=== PATIENT | male | born 1960 | race Caucasian/White ===

== ENCOUNTER 2016-11-17 02:16 | Inpatient (IN) | payer OTHER ==
[2016-11-17] VITALS (7 sets, daily range): BP systolic 122–157; BP diastolic 57–99
[~2016-11-17] VITALS: Ht 177.8 cm; Wt 114.7 kg
--- NOTE | ~2016-11-17 | ST ---
[place], [place] EXERCISE STRESS TEST REPORT NAME: BAYRON ROCK UNIT #: [id number] ROOM: 507 DOCTOR: TASH HOFFMANN MD BIRTHDATE: [birth year] DOS: 11/17/2016 LEXISCAN STRESS EKG REFERRING PHYSICIAN: Dr. De Leon. INDICATION: Chest pain The patient underwent standard protocol Lexiscan stress. The patient's baseline EKG showed normal sinus rhythm and nonspecific ST-T wave changes with intraventricular conduction delay. The patient's baseline heart rate 63 beats per minute with a blood pressure of 112/80. The patient's peak blood pressure or heart rate was 82 with a blood pressure of 118/72, patient denied any chest pain during the exam, the patient had no ST changes. The patient had occasional PVCs, mostly arrhythmias. SUMMARY OF FINDINGS: Unremarkable Lexiscan stress. Please refer to separate report for perfusion scan results. TASH HOFFMANN MD CM:STRESS:EXERCISE STRESS TEST REPORT [id number] TASH HOFFMANN MD
[2016-11-17] MEDS ORDERED: ASPIRIN CHILDRE81 MG PO (02:20)
[2016-11-17] MEDS ORDERED: AMIODARONE HCL400 MG PO (02:20)
[2016-11-17] MEDS ORDERED: AMLODIPINE BESYL5 MG PO (02:21)
[2016-11-17] MEDS ORDERED: LIPITOR10 MG PO (02:22)
[2016-11-17] MEDS ORDERED: PLAVIX75 M1 PO ×2 (02:22→09:37)
[2016-11-17] MEDS ORDERED: ALLOPURINOL100 MG PO (02:23)
[2016-11-17 02:36] LABS: BASO % 0.4 % (0.0-1.0); EOS # 0.2 10*3/uL (0.0-0.4); EOS % 1.7 % (1.0-4.0); HEMATOCRIT 41.7 % (42.0-52.0); HEMOGLOBIN 14.6 g/dl (14.0-18.0); IG # 0.1 10*3/uL (0.0-0.1); LYMPH # 3.3 10*3/uL (1.3-4.4); LYMPH % 33.5 % (27.0-41.0); MEAN CELL VOLUME 93.7 fl (80.0-94.0); MEAN CORPUSCULAR HGB 32.8 pg (27.0-31.0); MEAN PLATELET VOLUME 10.2 fl (9.6-12.3); MONO # 0.8 10*3/uL (0.1-1.0); MONO % 7.7 % (3.0-9.0); NEUT # 5.5 10*3/uL (2.3-7.9); NEUT % 56.2 % (47.0-73.0); PLATELET COUNT AUTOMATED 237 10*3/uL (130-400); RED BLOOD COUNT 4.45 10*6/uL (4.50-5.90); RED CELL DISTRI WIDTH 13.2 % (0-14.5); WHITE BLOOD COUNT 9.9 10*3/uL (4.8-10.8)
[2016-11-17 02:46] LABS: PROTHROMBIN TIME 10.2 SECONDS (9.0-12.4)
[2016-11-17 02:54] LABS: ALBUMIN 4.1 gm/dl (3.1-4.5); ALKALINE PHOSPHATASE 85 U/L (45-117); BILIRUBIN, TOTAL 0.4 mg/dl (0.2-1.0); BUN 17 mg/dl (7-24); CARBON DIOXIDE 26 mmol/L (21-32); CHLORIDE 100 mmol/L (98-107); EST GLOM FILT AFRICAN AMERICAN > 60 ml/min; GLUCOSE 138 mg/dL (65-99); MAGNESIUM 2.1 mg/dL (1.5-2.1); POTASSIUM 3.6 mmol/L (3.5-5.1); SGOT/AST 40 IU/L (3-35); SGPT/ALT 83 U/L (12-78); SODIUM 138 mmol/L (136-145); TOTAL PROTEIN 7.8 gm/dL (6.4-8.2)
[2016-11-17 02:55] LABS: TROPONIN I < 0.015 ng/ml (<0.045)
[2016-11-17 07:16] LABS: FREE T4 1.13 ng/dl (0.76-1.46)
[2016-11-17 07:22] LABS: THYROID STIM HORMONE (HS) 2.74 uIU/ml (0.358-4.75)
[2016-11-17 08:50] LABS: CKMB 1.6 ng/ml (0.5-3.6); CPK 80 U/L (39-308)
[2016-11-17 08:59] LABS: TROPONIN I < 0.015 ng/ml (<0.045)
[2016-11-17] MEDS ORDERED: AMIODARONE HYD200 MG PO (09:35)
[2016-11-17] MEDS ORDERED: LIPITOR20 MG PO (09:36)
[2016-11-17] MEDS ORDERED: NORVASC10 MG PO (09:36)
[2016-11-17 14:03] LABS: CKMB 1.2 ng/ml (0.5-3.6); CPK 82 U/L (39-308)
[2016-11-17 14:09] LABS: TROPONIN I < 0.015 ng/ml (<0.045)
[2016-11-17] MEDS ORDERED: IBU800 MG PO (17:57)
[2016-11-17 18:24] LABS: CKMB 1.3 ng/ml (0.5-3.6); CPK 81 U/L (39-308)
[2016-11-17 18:29] LABS: TROPONIN I < 0.015 ng/ml (<0.045)
== END 2016-11-17 18:38 | disposition home or self-care (01) | DRG 313 ==
LOC: ED 02:16 → EDHOLD 03:55 → 5E 03:59
PROVIDERS: Emergency Medicine Emergency Medical Services; Internal Medicine
PROC: 4A02XM4 Measurement of Cardiac Total Activity, External Approach (ICD-10-PCS; principal; 2016-11-17)
PROC: 3E073KZ Introduction of Other Diagnostic Substance into Coronary Artery, Percutaneous Approach (ICD-10-PCS; principal; 2016-11-17)
DX: R07.9 Chest pain, unspecified (principal); I25.2 Old myocardial infarction; I10 Essential (primary) hypertension; I48.0 Paroxysmal atrial fibrillation; R00.0 Tachycardia, unspecified; R73.9 Hyperglycemia, unspecified; R74.0 Nonspecific elevation of levels of transaminase and lactic acid dehydrogenase [LDH]; E78.5 Hyperlipidemia, unspecified; M10.9 Gout, unspecified; Z95.5 Presence of coronary angioplasty implant and graft; Z95.810 Presence of automatic (implantable) cardiac defibrillator; Z86.73 Personal history of transient ischemic attack (TIA), and cerebral infarction without residual deficits; Z82.49 Family history of ischemic heart disease and other diseases of the circulatory system; Z84.89 Family history of other specified conditions; Z79.82 Long term (current) use of aspirin; Z79.1 Long term (current) use of non-steroidal anti-inflammatories (NSAID); Z79.899 Other long term (current) drug therapy; Z88.8 Allergy status to other drugs, medicaments and biological substances; Z88.7 Allergy status to serum and vaccine

== ENCOUNTER 2016-12-20 14:58 | Inpatient (IN) | payer OTHER ==
[2016-12-19 20:40] VITALS: BP 160/89
[~2016-12-20] VITALS: Ht 177.8 cm; Wt 105.9 kg
--- NOTE | ~2016-12-20 | CON ---
[place], [place] REPORT OF CONSULTATION NAME: BAYRON ROCK UNIT #: [id number] ROOM: [facility] DOCTOR: FRANCISCO MCCRAY MD BIRTHDATE: [birth year] DOS: 12/21/2016 CHIEF COMPLAINT: Chest pain. HISTORY OF PRESENT ILLNESS: The patient is a 56-year-old man who is mostly followed for his cardiac issues in [place], [place]. The patient claims that he has had 3 previous myocardial infarctions, 1 of which was complicated by ventricular fibrillation, requiring defibrillation approximately 2 years ago. A single lead VVI defibrillator was inserted. To the patient's knowledge, the device has never fired. The patient states that for the last 3 months. He has had pain in his left anterior chest radiating into his left axilla. He relates it to the location of his ICD generator. He states that the pain can be intense and has required several hospital evaluations. He was most recently hospitalized at [facility] on 11/17/2016 at which time he ruled out for an acute myocardial infarction. A pharmacologic stress test done at that time showed a large fixed defect involving the inferolateral wall with minimal josias-infarction reversibility. Ejection fraction was preserved at 57%. It was felt that the patient should be treated medically. Since then, he has continued to have episodic chest pain. He presented to the Emergency Room at [facility] last evening because of worsening pain that persisted and did radiate into his shoulder and arm associated with diaphoresis, shortness of breath and some pleuritic pain. Chest x-ray was normal aside from the presence of his ICD. Multiple troponin levels were normal. The patient's ICD was interrogated by the [employer] dairy supplies sales representative. The device is an Inogen ICD model D140/536620. Pacing lead impedance was 548 ohms. The interrogation showed no events to display. Despite this, his monitor shows multiple apparent pacer spikes. It appeared as though the device was trying to pace terminate arrhythmias that were not apparent on the monitor strip. I could not tell from the strips available to me whether the displayed pacer spikes were artifactual or not. Today, unfortunately, he continues to have episodes of severe pain and was noted by staff to have periods of hiccups with jerking of his left anterior chest. The patient's outdoor power equipment mechanic, ____, was contacted from the Emergency Room. ____ suggested that the ICD be interrogated and the patient be discharged. He was nonetheless admitted to the hospital and today the hospitalists at [facility] have requested that the patient be transferred to [facility] for further assessment. PAST MEDICAL HISTORY: Includes: 1. Atherosclerotic heart disease. The patient has had reportedly 3 myocardial infarctions. He has reportedly had catheterization and stents. He has not had bypass surgery. Records are not currently available. 2. History of ventricular fibrillation requiring defibrillation and subsequent placement of a VVI defibrillator, which was implanted on 03/17/2016. 3. Hyperlipidemia. 4. History of transient ischemic attack. 5. Essential hypertension. [place], [place] REPORT OF CONSULTATION NAME: BAYRON ROCK UNIT #: [id number] ROOM: [facility] DOCTOR: FRANCISCO MCCRAY MD BIRTHDATE: [birth year] 6. History of hernia repair. FAMILY HISTORY: The patient's father of a heart attack at age 47. His mother had multiple myeloma. MEDICATIONS: Prior to admission, allopurinol 300 mg daily, amiodarone 200 mg b.i.d., amlodipine 10 mg daily, aspirin 81 mg daily, atorvastatin 20 mg daily and clopidogrel 75 mg daily. ALLERGIES: THE PATIENT LISTS ALLERGIES TO SIMVASTATIN AND PNEUMOCOCCAL VACCINE. REVIEW OF SYSTEMS: The patient denies diplopia or loss of vision. He denies focal weakness. He states that he does get a jerking of his left upper chest. He denies nausea or vomiting. He denies fevers, chills, sweats or recent weight change. He denies orthopnea or PND. He denies any trouble with his breathing, except when he has his chest pains. He denies nausea or vomiting. He denies change in bowel or bladder habits. He denies bleeding from any site. He denies any peripheral edema. The remainder of the review of systems is negative except as noted above. SOCIAL HISTORY: The patient is a former smoker. He does not consume significant amounts of alcohol. 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 PHYSICAL EXAMINATION: GENERAL: The patient is a well-nourished white male who is awake, alert and oriented. He does look older than his stated age. VITAL SIGNS: Pulse is 70 and regular. Blood pressure is 123/66. He is afebrile. He weighs 105.8 kg and has a body mass index of 33.5. HEENT: Normocephalic, atraumatic. Extraocular muscles are intact. Sclerae are clear. Pupils are equal, round and reactive to light. The oral mucosa is moist. Tongue is midline. NECK: Supple. He has no jugular distention. Carotids are full. I heard no bruits. LUNGS: Respirations are unlabored. His chest is clear to auscultation and percussion. He has no presacral edema or chest wall tenderness. CARDIOVASCULAR: His heart has a regular rhythm. He has a fourth heart sound, but no third heart sound. The PMI is not displaced. He has no precordial heave, lift or thrill. The left upper chest generator site is cool to touch, but very tender to palpation. He does have intermittent jerking of the muscles of his upper chest, which he states are involuntary. He is also tender in his left axilla, although there is no obvious swelling or erythema in that region. His abdomen is soft and normally active without masses, organomegaly or bruits. EXTREMITIES: Showed no edema. Peripheral pulses are palpable in the feet. LABORATORY DATA: Chest x-ray shows a single lead pacemaker overlying the left anterior chest. The lead appears to be intact. There are no infiltrates. His electrocardiogram shows sinus rhythm with a left bundle branch block. Multiple troponin levels have been drawn and were all normal. CBC shows a white count of 8400, hemoglobin is 14.6, platelet count 219,000. INR is 1.0. Sodium is 142, potassium 3.7, BUN 14, creatinine 1.09. Hemoglobin A1c was 6.4. Total [place], [place] REPORT OF CONSULTATION NAME: BAYRON ROCK UNIT #: [id number] ROOM: [facility] DOCTOR: FRANCISCO MCCRAY MD BIRTHDATE: [birth year] cholesterol is 168 with an LDL of 73 and an HDL 68. TSH is 3.17. IMPRESSION: 1. Chest pain. I am having a difficult time determining the cause of his chest pain. The patient is tender over his pacer site in his left upper chest and I do feel muscle jerking intermittently as I examined him. It is not clear if he is stimulating the muscles of his chest with his pacemaker and having muscle spasms related to that. He does not appear to have had any ICD discharges. ICD interrogation shows a normal lead impedance, which would argue against the patient having a lead fracture or loose lead. 2. History of atherosclerotic heart disease, status post myocardial infarction, reportedly x3 complicated by ventricular fibrillation requiring defibrillation. The patient subsequently had an ICD placed on 03/17/2016. PLAN: The patient will be discharged from [facility] and transferred to [facility] for further assessment and electrophysiologic assessment. I thank the hospitalist service for asking our advice regarding his care. FRANCISCO MCCRAY MD CM:CONSTR:REPORT OF CONSULTATION 1404 12/21/16 1537 interface
[~2016-12-20 14:58] MED LIST: ALLOPURINOL100 MG PO; AMIODARONE HCL400 MG PO; AMIODARONE HYD200 MG PO; AMLODIPINE BESYL5 MG PO; ASPIRIN CHILDRE81 MG PO; IBU800 MG PO; LIPITOR10 MG PO; LIPITOR20 MG PO; NORVASC10 MG PO; PLAVIX75 M1 PO
[2016-12-20 15:12] VITALS: BP 140/86
[2016-12-20 15:16] VITALS: BP 133/89
[2016-12-20 15:17] VITALS: BP 145/77
[2016-12-20 15:18] LABS: BASO % 0.4 % (0.0-1.0); EOS # 0.1 10*3/uL (0.0-0.4); EOS % 1.1 % (1.0-4.0); HEMOGLOBIN 14.6 g/dl (14.0-18.0); LYMPH % 23.3 % (27.0-41.0); MEAN CELL VOLUME 94.2 fl (80.0-94.0); MEAN CORPUSCULAR HGB 32.7 pg (27.0-31.0); MEAN CORPUSCULAR HGB CONC 34.8 g/dl (33.0-37.0); MEAN PLATELET VOLUME 9.8 fl (9.6-12.3); MONO # 0.5 10*3/uL (0.1-1.0); MONO % 5.9 % (3.0-9.0); NEUT # 5.8 10*3/uL (2.3-7.9); NEUT % 68.8 % (47.0-73.0); PLATELET COUNT AUTOMATED 219 10*3/uL (130-400); RED BLOOD COUNT 4.46 10*6/uL (4.50-5.90); RED CELL DISTRI WIDTH 12.7 % (0-14.5); WHITE BLOOD COUNT 8.4 10*3/uL (4.8-10.8)
[2016-12-20 15:27] LABS: PROTHROMBIN TIME 10.1 SECONDS (9.0-12.4)
[2016-12-20 15:35] LABS: ALKALINE PHOSPHATASE 78 U/L (45-117); BILIRUBIN, TOTAL 0.4 mg/dl (0.2-1.0); BUN 19 mg/dl (7-24); CARBON DIOXIDE 23 mmol/L (21-32); CHLORIDE 104 mmol/L (98-107); EST GLOM FILT AFRICAN AMERICAN > 60 ml/min; GLUCOSE 199 mg/dL (65-99); MAGNESIUM 2.3 mg/dL (1.5-2.1); POTASSIUM 4.2 mmol/L (3.5-5.1); SGOT/AST 36 IU/L (3-35); SGPT/ALT 68 U/L (12-78); SODIUM 138 mmol/L (136-145); TOTAL PROTEIN 7.7 gm/dL (6.4-8.2)
[2016-12-20 15:40] LABS: TROPONIN I < 0.015 ng/ml (<0.045)
[2016-12-20 16:37] VITALS: BP 137/80
[2016-12-20 20:01] VITALS: BP 134/76
[2016-12-20 20:40] VITALS: BP 160/89
[2016-12-21] VITALS (9 sets, daily range): BP systolic 123–169; BP diastolic 66–92
[2016-12-21 00:38] LABS: CKMB 0.9 ng/ml (0.5-3.6); CPK 57 U/L (39-308); TROPONIN I < 0.015 ng/ml (<0.045)
[2016-12-21 06:22] LABS: BASO % 0.4 % (0.0-1.0); EOS # 0.1 10*3/uL (0.0-0.4); EOS % 1.9 % (1.0-4.0); HEMATOCRIT 40.7 % (42.0-52.0); HEMOGLOBIN 13.7 g/dl (14.0-18.0); LYMPH # 2.3 10*3/uL (1.3-4.4); LYMPH % 31.4 % (27.0-41.0); MEAN CELL VOLUME 95.3 fl (80.0-94.0); MEAN CORPUSCULAR HGB 32.1 pg (27.0-31.0); MEAN CORPUSCULAR HGB CONC 33.7 g/dl (33.0-37.0); MEAN PLATELET VOLUME 10.1 fl (9.6-12.3); MONO # 0.6 10*3/uL (0.1-1.0); MONO % 8.8 % (3.0-9.0); NEUT # 4.1 10*3/uL (2.3-7.9); NEUT % 57.1 % (47.0-73.0); PLATELET COUNT AUTOMATED 196 10*3/uL (130-400); RED BLOOD COUNT 4.27 10*6/uL (4.50-5.90); RED CELL DISTRI WIDTH 12.9 % (0-14.5); WHITE BLOOD COUNT 7.3 10*3/uL (4.8-10.8)
[2016-12-21 06:31] LABS: CPK 55 U/L (39-308)
[2016-12-21 06:39] LABS: TROPONIN I < 0.015 ng/ml (<0.045)
[2016-12-21 06:54] LABS: BUN 14 mg/dl (7-24); CARBON DIOXIDE 27 mmol/L (21-32); CHLORIDE 107 mmol/L (98-107); CHOLESTEROL 168 mg/dL (<200); EST GLOM FILT AFRICAN AMERICAN > 60 ml/min; FREE T4 1.15 ng/dl (0.76-1.46); GLUCOSE 94 mg/dL (65-99); HDL CHOLESTEROL 68 mg/dl (40-60); LDL CHOLESTEROL 73 mg/dL (9-159); PHOSPHOROUS 3.5 mg/dL (2.5-4.9); POTASSIUM 3.7 mmol/L (3.5-5.1); SODIUM 142 mmol/L (136-145); TRIGLYCERIDES 133 mg/dl (<150); VLDL CHOLESTEROL 27 mg/dL (6-40)
[2016-12-21 07:02] LABS: HEMOGLOBIN A1c 6.4 % (4.8-5.6)
== END 2016-12-21 14:16 | disposition short-term general hospital (02) | DRG 303 ==
LOC: ED 14:58 → 5E 20:09 → EDHOLD 20:09 → 5E 20:19 → ICCU 12-21 07:51
PROVIDERS: Emergency Medicine; Student in an Organized Health Care Education/Training Program
DX: I25.119 Atherosclerotic heart disease of native coronary artery with unspecified angina pectoris (principal); E83.41 Hypermagnesemia; I10 Essential (primary) hypertension; K59.00 Constipation, unspecified; R73.9 Hyperglycemia, unspecified; R74.0 Nonspecific elevation of levels of transaminase and lactic acid dehydrogenase [LDH]; E78.5 Hyperlipidemia, unspecified; M1A.9XX0 Chronic gout, unspecified, without tophus (tophi); I25.2 Old myocardial infarction; Z95.5 Presence of coronary angioplasty implant and graft; Z86.73 Personal history of transient ischemic attack (TIA), and cerebral infarction without residual deficits; Z87.891 Personal history of nicotine dependence; Z82.49 Family history of ischemic heart disease and other diseases of the circulatory system; Z80.9 Family history of malignant neoplasm, unspecified; Z88.8 Allergy status to other drugs, medicaments and biological substances; Z88.7 Allergy status to serum and vaccine; Z79.82 Long term (current) use of aspirin; Z79.899 Other long term (current) drug therapy